=== PATIENT | female | born 1975 | race Caucasian/White ===

== ENCOUNTER 2017-12-03 20:02 | Emergency (ER) | payer MEDICAID ==
[2017-12-03 20:17] VITALS: O2SAT 98
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
[2017-12-03 21:27] LABS: BASO # 0.1 K/uL (0.0-0.2); BASO % 0.6 % (0.0-2.0); EOS # 0.1 K/uL (0.0-0.7); HEMOGLOBIN 14.7 g/dL (12.0-16.0); LYMPH # 2.2 K/uL (1.0-4.3); LYMPH % 22.1 % (20.0-40.0); MEAN CELL VOLUME 94.4 fl (81.0-99.0); MEAN CORPUSCULAR HEMOGLOBIN 32.2 pg (27.0-31.0); MEAN CORPUSCULAR HGB CONC 34.1 g/dL (33.0-37.0); MEAN PLATELET VOLUME 7.9 fl (7.2-11.7); MONO # 0.7 K/uL (0.0-0.8); NEUT # 6.8 K/uL (1.8-7.0); NEUT % 69.3 % (50.0-75.0); RBC 4.58 Mil/uL (3.80-5.20); RED CELL DISTRIBUTION WIDTH 14.3 % (11.5-14.5); WHITE BLOOD COUNT 9.8 K/uL (4.8-10.8)
[2017-12-03 21:29] LABS: SQUAMOUS EPITHIAL 4 /hpf (0-5); URINE BACTERIA RARE (<OCC); URINE BILIRUBIN NEGATIVE (NEGATIVE); URINE BLOOD SMALL (NEGATIVE); URINE CLARITY CLOUDY (Clear); URINE COLOR YELLOW (YELLOW); URINE GLUCOSE (UA) NEG (Normal); URINE LEUKOCYTE ESTERASE NEG Leu/uL (Negative); URINE PROTEIN 30 mg/dL (NEGATIVE); URINE UROBILINOGEN 0.2-1.0 mg/dL (0.2-1.0)
[2017-12-03 21:35] LABS: ALB/GLOB RATIO 1.3 (1.0-2.1); ALBUMIN 4.4 g/dL (3.5-5.0); ALT/SGPT 26 U/L (9-52); AST/SGOT 19 U/L (14-36); BLOOD UREA NITROGEN 10 mg/dl (7-17); CALCIUM 9.6 mg/dL (8.4-10.2); GFR NON-AFRICAN AMERICAN > 60
[2017-12-03 21:45] LABS: VENOUS BLOOD GAS BASE EXCESS 0.8 mmol/L (0.0-2.0); VENOUS BLOOD GAS PCO2 43 mmHg (40-60); VENOUS BLOOD GAS PO2 20 mm/Hg (30-55); VENOUS BLOOD PH 7.39 (7.32-7.43)
[2017-12-04 00:39] VITALS: BP 104/67; PULSE 91; RESP 18; TEMP 98.8
--- NOTE | 2017-12-04 11:30 | CT ---
Date of service: 12/03/2017 PROCEDURE: CT Abdomen and Pelvis without intravenous contrast HISTORY: UTI; CKD; b/l flank pain COMPARISON: None. TECHNIQUE: Without contrast.. Contrast dose: 0 Radiation dose: Total exam DLP = 328.03 mGy-cm. This CT exam was performed using one or more of the following dose reduction techniques: Automated exposure control, adjustment of the mA and/or kV according to patient size, and/or use of iterative reconstruction technique. FINDINGS: LOWER THORAX: Unremarkable. LIVER: Unremarkable. No gross lesion or ductal dilatation. GALLBLADDER AND BILE DUCTS: Unremarkable. PANCREAS: Unremarkable. No gross lesion or ductal dilatation. SPLEEN: Unremarkable. ADRENALS: Unremarkable. No mass. KIDNEYS AND URETERS: Multiple very small nonobstructing right renal calculi both in the mid and upper aspect of the kidney. No left renal calculus. No hydronephrosis or hydroureter. No renal mass. VASCULATURE: Unremarkable. No aortic aneurysm. BOWEL: Unremarkable. No obstruction. No gross mural thickening. APPENDIX: Unremarkable. Normal appendix. PERITONEUM: Unremarkable. No free fluid. No free air. LYMPH NODES: Unremarkable. No enlarged lymph nodes. BLADDER: Nondistended REPRODUCTIVE: Normal uterus BONES: No acute fracture. OTHER FINDINGS: None. IMPRESSION: Multiple nonobstructing very small right renal calculi. No additional abnormality. Cannot exclude pyelonephritis on the basis of this examination due to the absence of intravenous contrast administration.
== END 2017-12-03 23:45 | disposition home or self-care (01) ==
LOC: H.ER 20:02
DX: N39.0 Urinary tract infection, site not specified (principal); N20.0 Calculus of kidney

== ENCOUNTER 2017-12-18 20:48 | Emergency (ER) | payer OTHER, MEDICAID ==
[2017-12-18 21:13] VITALS: BP 104/70; PULSE 96; RESP 20; TEMP 98; O2SAT 98
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
[2017-12-19] MEDS ORDERED: Lidocaine 1% 5ml Abboject ONE (11:52)
[2017-12-19] MEDS ORDERED: Povidone Iodine Topical 10% Sol ONE (11:52)
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
== END 2017-12-19 00:01 | disposition home or self-care (01) ==
LOC: H.ER 20:48
DX: S80.11XA Contusion of right lower leg, initial encounter (principal); V03.10XA Pedestrian on foot injured in collision with car, pick-up truck or van in traffic accident, initial encounter; Y92.410 Unspecified street and highway as the place of occurrence of the external cause
CPT/HCPCS: 93971; 96372; 99282; J1885

== ENCOUNTER 2018-06-28 22:20 | Emergency (ER) | payer MEDICAID, OTHER ==
[2018-06-28 22:41] VITALS: O2SAT 100
[2018-06-28] MEDS ORDERED: Sodium Chloride 0.9% 1,000 ML IV STA (23:59)
--- NOTE | 2018-06-29 00:36 | ED PDOC ---
HPI: Headache Time Seen by Provider: 06/28/18 23:45 Chief Complaint (Nursing): Headache Chief Complaint (Provider): Headache History Per: Patient History/Exam Limitations: no limitations Onset/Duration Of Symptoms: Days (1x week) Current Symptoms Are (Timing): Still Present Severity: Moderate Additional Complaint(s): 42 year old female with a past medical history of fibromyalgia, hyperthyroidism, an polymyalgia presents to the ED for an evaluation of a headache that started 1x week ago. Patient states that this is a tension heada marisol, and different from her usual migraines which she usually takes imitrex for. Patient also recently noticed a bump on the back of her head with no recollection of a head injury. Patient states that the bump is tender, and specifically painful when she brushes her hair. Patient also reports having nausea, but denies having fevers or vomiting. Patient reports taking imitrex and vicodin earlier today thinking they would resolve her symptoms, but they have not. PMD: Ck Odonnell MD Past Medical History Reviewed: Historical Data, Nursing Documentation, Vital Signs Vital Signs: Last Vital Signs Temp 97.9 F 06/28/18 22:38 Pulse 98 H 06/28/18 22:38 Resp 20 06/28/18 22:38 BP 103/71 06/28/18 22:38 Pulse Ox 100 06/28/18 22:38 CANDY Report Viewed: Yes Primary Care Physician: Ck Odonnell MD - Medical History PMH: Anxiety, Arthritis, Asthma, Fibromyalgia, Hyperthyroidism, Migraine Other PMH: polymyalgia - Family History Family History: States: No Known Family Hx - Social History Current smoker - smoking cessation education provided: Yes (heavy smoker) Alcohol: None Drugs: Denies - Home Medications Home Medications: Ambulatory Orders Medication Instructions Recorded Ciprofloxacin [Cipro] 500 mg PO BID #14 tab 12/03/17 Phenazopyridine HCl [Pyridium] 200 mg PO BID #6 tablet 12/03/17 Ibuprofen [Motrin Tab] 800 mg PO Q8 PRN #20 tab 12/18/17 - Allergies Allergies/Adverse Reactions: Allergies Allergy/AdvReac Type Severity Reaction Status Date / Time No Known Allergies Allergy Verified 06/28/18 22:38 Review of Systems ROS Statement: Except As Marked, All Systems Reviewed And Found Negative Constitutional: Negative for: Fever Gastrointestinal: Positive for: Nausea. Negative for: Vomiting Skin: Positive for: Other (tender bump on back of head) Neurological: Positive for: Headache Physical Exam - Reviewed Nursing Documentation Reviewed: Yes Vital Signs Reviewed: Yes - Physical Exam Appears: Positive for: Well, Non-toxic, No Acute Distress Head Exam: Positive for: ATRAUMATIC, NORMOCEPHALIC. Negative for: NORMAL INS PECTION (small hematoma to mid occipital region, 1 cm, tender) Skin: Positive for: Normal Color, Warm, Dry Eye Exam: Positive for: Normal appearance Neck: Positive for: Normal Cardiovascular/Chest: Positive for: Regular Rate, Rhythm Respiratory: Positive for: Normal Breath Sounds Neurological/Psych: Positive for: Awake, Alert, Oriented (3x), Cerebellar Tests (normal), financial sales advisor II-XII (intact) - Laboratory Results Result Diagrams: 06/29/18 01:03 06/29/18 01:03 - ECG O2 Sat by Pulse Oximetry: 100 (RA) Pulse Ox Interpretation: Normal Medical Decision Making Medical Decision Makin:45 Initial impression: 42 year old female with a headache (atypical for patient). Initial plan: * CT head w/o contrast * CMP * upreg * udip * CBC with differential * ESR * IV NS 1,000 ml IV 1,000 mls/hr * reglan 10 mg IVPB * toradol 30 mg IV * reevaluation 12:34 CT head read and reviewed by radiologist FINDINGS: BRAIN: No acute intraparenchymal hemorrhage. No mass lesion. No CT evidence for acute territorial infarct. No midline shift or extra-axial collections. VENTRICLES: No hydrocephalus. ORBITS: The orbits are unremarkable. SINUSES AND MASTOIDS: The paranasal sinuses and mastoid air cells are clear. BONES: No fracture. SOFT TISSUES: Unremarkable. IMPRESSION: No acute intracranial abnormality. Little interval change in comparison with the [address] 2:45 Upon provider reevaluation patient reports having an improvement in symptoms, is medically stable, and requires no further treatment in the ED at this time. P atient will be discharged home. Counseling was provided and all questions were answered regarding diagnosis of a headache and need for follow up with PMD. There is agreement to discharge plan. Return if symptoms persist or worsen. ScribeAttestation: Documented byEsther Zheng, acting as a scribe for Osman Molina MD. Provider ScribeAttestation: All medical record entries made by the Scribe were at my direction and personally dictated by me. I have reviewed the chart and agree that the record accurately reflects my personal performance of the history, physical exam, medical decision making, and the department course for this patient. I have also personally directed, reviewed, and agree with the discharge instructions and disposition. Disposition - Clinical Impression Clinical Impression: Headache - Disposition Referrals: Ck Odonnell MD [Primary Care Provider] - Disposition Time: 02:45 Condition: IMPROVED Instructions: Tension Headache, Headache, Adult Forms: [employer] (Wolof)
[2018-06-29 01:07] LABS: BASO % 0.5 % (0.0-2.0); EOS # 0.1 K/uL (0.0-0.7); EOS % 1.5 % (0.0-4.0); HEMOGLOBIN 12.9 g/dL (12.0-16.0); LYMPH # 2.5 K/uL (1.0-4.3); LYMPH % 29.7 % (20.0-40.0); MEAN CELL VOLUME 92.4 fl (81.0-99.0); MEAN CORPUSCULAR HEMOGLOBIN 31.4 pg (27.0-31.0); MEAN PLATELET VOLUME 8.1 fl (7.2-11.7); MONO # 0.5 K/uL (0.0-0.8); MONO % 6.5 % (0.0-10.0); NEUT # 5.1 K/uL (1.8-7.0); NEUT % 61.8 % (50.0-75.0); RBC 4.11 Mil/uL (3.80-5.20); RED CELL DISTRIBUTION WIDTH 13.8 % (11.5-14.5); WHITE BLOOD COUNT 8.3 K/uL (4.8-10.8)
[2018-06-29 01:15] LABS: ALB/GLOB RATIO 1.4 (1.0-2.1); ALT/SGPT 17 U/L (9-52); AST/SGOT 14 U/L (14-36); BLOOD UREA NITROGEN 11 mg/dl (7-17); GFR NON-AFRICAN AMERICAN > 60
[2018-06-29 02:58] VITALS: BP 116/68; PULSE 77; RESP 15; TEMP 98.3
--- NOTE | 2018-06-29 10:07 | CT ---
Date of service: 06/29/2018 PROCEDURE: CT HEAD WITHOUT CONTRAST. HISTORY: headache COMPARISON: None available. TECHNIQUE: Axial computed tomography images were obtained through the head/brain without intravenous contrast. Radiation dose: Total exam DLP = 655.6 mGy-cm. This CT exam was performed using one or more of the following dose reduction techniques: Automated exposure control, adjustment of the mA and/or kV according to patient size, and/or use of iterative reconstruction technique. FINDINGS: HEMORRHAGE: No intracranial hemorrhage. BRAIN: No mass effect or edema. No atrophy or chronic microvascular ischemic changes. VENTRICLES: Unremarkable. No hydrocephalus. CALVARIUM: Unremarkable. PARANASAL SINUSES: Unremarkable as visualized. No significant inflammatory changes. MASTOID AIR CELLS: Unremarkable as visualized. No inflammatory changes. OTHER FINDINGS: None. IMPRESSION: Normal CT of the Head. No intracranial mass, hemorrhage or evidence of acute infarct. The preliminary findings for this examination were reported by [facility] at 12:34 a.m. on 06/29/2018. There is concurrence of this report with the preliminary findings.
== END 2018-06-29 02:58 | disposition home or self-care (01) ==
LOC: H.ER 22:20
DX: R51 Headache (principal); F17.200 Nicotine dependence, unspecified, uncomplicated; J45.909 Unspecified asthma, uncomplicated; M79.7 Fibromyalgia
CPT/HCPCS: 70450; 80053; 81025; 82948; 85025; 85651; 96374; 96375; 99285; J1885; J2765; J7030

== ENCOUNTER 2018-08-06 21:27 | Emergency (ER) | payer MEDICAID ==
[2018-08-06 21:50] VITALS: BP 110/76; PULSE 112; RESP 18; TEMP 98.5; O2SAT 98
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
--- NOTE | 2018-08-07 08:51 | RAD ---
Date of service: 08/06/2018 HISTORY: HIP PAIN COMPARISON: None available. TECHNIQUE: 1 view obtained. FINDINGS: BONES: Normal. No fracture. JOINTS: Normal. No osteoarthritis. SOFT TISSUE: Normal. OTHER FINDINGS: None . IMPRESSION: Normal Bone Xray.
== END 2018-08-06 23:55 | disposition home or self-care (01) ==
LOC: H.ER 21:27
DX: M25.551 Pain in right hip (principal); G62.9 Polyneuropathy, unspecified; E05.90 Thyrotoxicosis, unspecified without thyrotoxic crisis or storm; J45.909 Unspecified asthma, uncomplicated; M79.7 Fibromyalgia